=== PATIENT | male | born 1940 | race Caucasian/White ===

== ENCOUNTER 2018-11-10 14:46 | Inpatient (IN) | payer MEDICARE, OTHER ==
[~2018-11-10] VITALS: Ht 180.3 cm; Wt 53.5 kg
--- NOTE | ~2018-11-10 | MORECARE ---
CASE MANAGEMENT DISCHARGE SUMMARY PATIENT: BETSY BOYER UNIT: [id number] ADM DATE: 11/10/18 AGE: 78 : 42 SEX: M ROOM/BED: D.2229 AUTHOR: RUDI,DOC PHYSICIAN: REFERRING PHYSICIAN: VERA MEEKS MD DATE OF SERVICE: 11/17/18 Discharge Plan Patient Name: BETSY BOYER Facility: [facility]:[place] : 1940 Planned Disposition: Home with Home Health Anticipated Discharge Date: 11/16/18 Discharge Date: 11/15/2018 Expected LOS: 6 Initial Reviewer: [email or web address] Initial Review Date: 11/14/2018 Generated: 11/17/18 10:54 am Comments DCP- Discharge Planning Updated by [id number]: Ai West on 11/14/18 11:[address] Patient Name: BETSY BOYER Admission Status: Elective Accout number: [id number] Admission Date: 11-10-2018 : 1940 Admission Diagnosis:UNSP INTESTNL OBST, UNSP TO PARTIAL VERSUS COMPLETE Attending: VERA MEEKS Current LOS: 4 Anticipated DC Date: 11-16-2018 Planned Disposition: Home with Home Health Primary Insurance: UNINSURED DISCOUNT PLAN Discharge Planning Comments: CM met with patient and to discuss discharge planning. States he was independent with all ADL's and IADL's. prior to admission. He wears oxygen at 2L NC at . He gets his oxygen supplies from [facility]. He has his portable oxygen here to get home with. Discussed availability of rehab, SNF and home health. They would like Home health with [facility]. I called and spoke to An at [facility] and faxed clinical. I also faxed corrected insurance information and home address [address] in [place]. Home phone number is [phone]. An states they also received the referral from [facility]. CM will continue to follow and assist with discharge planning/needs. [employer] Project Manager: Ai West DCPIA - Discharge Planning Initial Assessment Updated by [email or web address]: Ai West on 11/14/18 12:28 pm * Is the patient Alert and Oriented? Yes * How many steps to enter\exit or inside your home? 4/0 * PCP Dr. Rashad Bobo in [place] * Pharmacy [facility] * Preadmission Environment Home with Family * ADLs Independent * Equipment Nebulizer Other Oxygen * Other Equipment Portable oxygen * List name and contact numbers for known caregivers / representatives who currently or will assist patient after discharge: Yamil sommer - [phone] * Verbal permission to speak to the caregivers and representatives has been obtained from the patient. Yes * Community resources currently utilized None * Please name any agencies selected above. DME - [facility] for oxygen * Additional services required to return to the preadmission environment? Yes * Can the patient safely return to the preadmission environment? Yes * Has this patient been hospitalized within the prior 30 days at any hospital? No Last DP export: 11/14/18 11:39 Patient Name: BETSY BOYER Page [id number] at 0954 All edits/amendments must be made on the electronic document DICTATION DATE: 11/17/18953 BUSINESS CONTINUITY SPECIALIST: CRISTINO 11/17/18953 RPT#: [id number] DC DATE:11/15/18 STATUS: DIS IN [facility] [address] [place] [address] END OF REPORT
--- NOTE | ~2018-11-10 | OP ---
PATIENT NAME: BETSY BOYER MEDICAL RECORD: [id number] :44 LOCATION:D.MS Garcia2229 ADMISSION DATE:11/10/18 SURGEON: LANCE MEEKS MD DATE OF OPERATION: 11/11/2018 PREOPERATIVE DIAGNOSES: 1. Small-bowel obstruction. 2. Right colon mass. 3. Coronary artery disease. 4. Chronic obstructive pulmonary disease. 5. History of prostate and bladder cancer. POSTOPERATIVE DIAGNOSES: 1. Small-bowel obstruction. 2. Right colon mass. 3. Coronary artery disease. 4. Chronic obstructive pulmonary disease. 5. History of prostate and bladder cancer. PROCEDURE: Hand-assisted laparoscopic right hemicolectomy. SURGEON: Lance Meeks MD REPORT OF PROCEDURE: The patient's abdomen was prepped and draped in sterile fashion. A skin incision was made around the patient's umbilicus and electrocautery was used to dissect through the subcutaneous tissues and fascia until we entered the abdominal cavity. Once inside, we could see dilated small bowel consistent with a known diagnosis of small-bowel obstruction. The Gelport was inserted with a 5-mm trocar within it. We insufflated the abdomen and under direct visualization, a 5-mm trocar was placed in the epigastrium and another was placed in the right subcostal region. As we penetrated the abdominal cavity, I could feel in the right lower quadrant that there was a mass present that was causing the obstruction. This mass appeared to be right at the ileocecal valve. The white line of Toldt to the right colon was taken down and we mobilized the right colon medially. We continued this dissection around the hepatic flexure and went medially to about the middle to the proximal third of the transverse colon. Once we had this colon completely mobilized, then I inspected the remainder of the abdominal cavity, I felt around on the liver and there were no distinct masses or lesions that were felt. The abdominal wall was clear of any carcinomatosis. The remaining bowel and omentum appeared to be normal with no signs of any other masses or lesions. There was dilatation to the small bowel throughout I felt on the stomach and the NG tube was in good position. At this point, the right colon with the mass was eviscerated through the wound protector. We transected the small bowel at approximately 6 cm proximal to the ileocecal valve using a 75 blue load DONOVAN stapler. The proximal transverse colon was transected with a 75 blue load DONOVAN stapler and the mesentery was taken down with sequential clamp and tie techniques with 3-0 silks. The bowel was sent off for permanent specimen. The 2 ends of the bowel were placed together and a gsvz-ys-ooje anastomosis was performed with a 75 blue load DONOVAN stapler. The enterotomy were closed off with a 30 blue load TA stapler and then I oversewed all the staple lines using Lemberted 3-0 silks. This was then placed back into the abdominal cavity. The omentum was then laid over top of the anastomosis. We irrigated out the abdomen thoroughly with normal saline and assured there was no sign of any active bleeding. At this point, the ports and insufflation were removed. The midline fascia was closed with running #1 OPERATIVE REPORT [id number] BETSY BOYER PDS times 2. The subcutaneous tissues were irrigated out and then the skin incisions were all closed with charan. COMPLICATIONS: None. CONDITION: Stable. ANESTHESIA: General endotracheal. BLOOD LOSS: Minimal. TRANSINT:[id number] Voice Confirmation ID: [id number] DOCUMENT ID: [id number] LANCE MEEKS MD CC: [id number] DICTATION DATE: 11/11/182229 REFRIGERATOR ROOM CLERK: 11/12/18 0152 ADM IN [facility] [address] [id number]
--- NOTE | ~2018-11-10 | MORECARE ---
CASE MANAGEMENT DISCHARGE SUMMARY PATIENT: BETSY BOYER UNIT: [id number] ADM DATE: 11/10/18 AGE: 78 : 42 SEX: M ROOM/BED: D.2229 AUTHOR: RUDI,DOC PHYSICIAN: REFERRING PHYSICIAN: VERA MEEKS MD DATE OF SERVICE: 11/14/18 Discharge Plan Patient Name: BETSY BOYER Facility: [facility]:[place] : 1940 Planned Disposition: Home with Home Health Anticipated Discharge Date: 11/16/18 Discharge Date: Expected LOS: 6 Initial Reviewer: [email or web address] Initial Review Date: 11/14/2018 Generated: 11/14/18 1:39 pm Comments DCP- Discharge Planning Updated by [email or web address]: Ai West on 11/14/18 11:[address] Patient Name: BETSY BOYER Admission Status: Elective Accout number: [id number] Admission Date: 11-10-2018 : 1940 Admission Diagnosis:UNSP INTESTNL OBST, UNSP TO PARTIAL VERSUS COMPLETE Attending: VERA MEEKS Current LOS: 4 Anticipated DC Date: 11-16-2018 Planned Disposition: Home with Home Health Primary Insurance: UNINSURED DISCOUNT PLAN Discharge Planning Comments: CM met with patient and to discuss discharge planning. States he was independent with all ADL's and IADL's. prior to admission. He wears oxygen at 2L [place] at . He gets his oxygen supplies from [facility]. He has his portable oxygen here to get home with. Discussed availability of rehab, SNF and home health. They would like Home health with [facility]. I called and spoke to An at [facility] and faxed clinical. I also faxed corrected insurance information and [address] address [address] [place]. Home phone number is [phone]. An states they also received the referral from [facility]. CM will continue to follow and assist with discharge planning/needs. [employer]ade Cloth Sewer: Ai West DCPIA - Discharge Planning Initial Assessment Updated by [email or web address]: Ai West on 11/14/18 12:28 pm * Is the patient Alert and Oriented? Yes * How many steps to enter\exit or inside your home? 4/0 * PCP Dr. Rashad Bobo in [place] * Pharmacy [place] * Preadmission Environment Home with Family * ADLs Independent * Equipment Nebulizer Other Oxygen * Other Equipment Portable oxygen * List name and contact numbers for known caregivers / representatives who currently or will assist patient after discharge: Yamil sommer - [phone] * Verbal permission to speak to the caregivers and representatives has been obtained from the patient. Yes * Community resources currently utilized None * Please name any agencies selected above. DME - [facility] for oxygen * Additional services required to return to the preadmission environment? Yes * Can the patient safely return to the preadmission environment? Yes * Has this patient been hospitalized within the prior 30 days at any hospital? No Last DP export: 11/14/18 11:30 Patient Name: BETSY BOYER Page [id number] at 1239 All edits/amendments must be made on the electronic document DICTATION DATE: 11/14/188 HEATING AND COOLING SYSTEMS ENGINEER: CRISTINO 11/14/18 1238 RPT#: [id number] DC DATE: STATUS: ADM IN [facility] [address] [place] [address] END OF REPORT
--- NOTE | ~2018-11-10 | MORECARE ---
CASE MANAGEMENT DISCHARGE SUMMARY PATIENT: BETSY BOYER UNIT: [id number] ADM DATE: 11/10/18 AGE: 78 : 42 SEX: M ROOM/BED: D.2229 AUTHOR: ADELIA GRIJALVA PHYSICIAN: REFERRING PHYSICIAN: VERA MEEKS MD DATE OF SERVICE: 11/14/18 Discharge Plan Patient Name: BETSY BOYER [facility] [facility] 1940 Planned Disposition: Home with Home Health Anticipated Discharge Date: 11/16/18 Discharge Date: Expected LOS: 6 Initial Reviewer: [email or web address] Initial Review Date: 11/14/2018 Generated: 11/14/18 1:30 pm DCPIA - Discharge Planning Initial Assessment Updated by [email or web address]: Ai West on 11/14/18 12:28 pm * Is the patient Alert and Oriented? Yes * How many steps to enter\exit or inside your home? 4/0 * PCP Dr. Rashad Bobo in [place] * Pharmacy [place] * Preadmission Environment Home with Family * ADLs Independent * Equipment Nebulizer Other Oxygen * Other Equipment Portable oxygen * List name and contact numbers for known caregivers / representatives who currently or will assist patient after discharge: Yamil sommer - [phone] * Verbal permission to speak to the caregivers and representatives has been obtained from the patient. Yes * Community resources currently utilized None * Please name any agencies selected above. DME - [facility] for oxygen * Additional services required to return to the preadmission environment? Yes * Can the patient safely return to the preadmission environment? Yes * Has this patient been hospitalized within the prior 30 days at any hospital? No External Providers External Provider: [facility] Next Contact Date: Service Request Date: Service Type: Resolution: Reviewer: Comments: Patient Name: BETSY BOYER Page 01961 at 1230 All edits/amendments must be made on the electronic document DICTATION DATE: 11/14/18 1230 REHAB THERAPY MANAGER: CRISTINO 11/14/18 1230 RPT#: [id number] DC DATE: STATUS: ADM IN [facility] [address] [id number] END OF REPORT
[2018-11-10 18:56] LABS: BASOPHILS 0.1 % (0-2); EOSINOPHILS 0.1 % (0-7); HEMATOCRIT 31.7 % (42.0-54.0); HEMOGLOBIN 9.6 g/dL (13.5-17.5); IMMATURE GRANULOCYTES 0.3 % (0-5); LYMPHOCYTES 9.7 % (15-50); MCH 20.6 pg (26.0-34.0); MCHC 30.3 g/dL (31.0-37.0); MCV 67.9 fL (80.0-100.0); MEAN PLATELET VOLUME 9.2 fL (7.4-10.4); MONOCYTES 10.7 % (2-11); NEUTROPHILS 79.1 % (40-80); PLATELET COUNT 238 10x3/uL (130-400); RBC 4.67 10x6/uL (4.20-6.10); RDW 17.7 % (11.5-14.5); WBC 13.2 10x3/uL (4.8-10.8)
[2018-11-10 19:08] LABS: CALC OSMOLALITY 285 mosm/kg (275-300); CALCIUM 7.6 mg/dL (8.5-10.1); CARBON DIOXIDE 25.9 mmol/L (21.0-32.0); CHLORIDE - SERUM 105 mmol/L (98-107); CREATININE - SERUM 0.8 mg/dL (0.6-1.3); GLUCOSE 123 mg/dL (74-106); SODIUM 142 mmol/L (136-145); UREA NITROGEN 17 mg/dL (7-18); eGFR NON AFRICAN AMERICAN > 90 mL/min (90-120)
[2018-11-10 20:00] VITALS: BP 130/76
[2018-11-11] VITALS (10 sets, daily range): BP systolic 120–144; BP diastolic 54–76; Ht 180.3 cm; Wt 53.5 kg
[2018-11-11] MEDS ORDERED: POTASSIUM CHLORIDE E PO (07:38)
[2018-11-11] MEDS ORDERED: LANOXIN125 MCG PO (07:39)
[2018-11-11] MEDS ORDERED: COREG 3.1253.125 MG PO (07:40)
[2018-11-11] MEDS ORDERED: ZOCOR40 MG PO (07:41)
[2018-11-11] MEDS ORDERED: FUROSEMIDE40 MG PO (07:41)
[2018-11-12] VITALS (12 sets, daily range): BP systolic 103–117; BP diastolic 47–61
[2018-11-12 06:14] LABS: BASOPHILS 0.1 % (0-2); EOSINOPHILS 0 % (0-7); HEMATOCRIT 30.4 % (42.0-54.0); IMMATURE GRANULOCYTES 0.3 % (0-5); LYMPHOCYTES 7.6 % (15-50); MCH 20.7 pg (26.0-34.0); MCHC 29.6 g/dL (31.0-37.0); MEAN PLATELET VOLUME 10.1 fL (7.4-10.4); MONOCYTES 10.2 % (2-11); NEUTROPHILS 81.8 % (40-80); PLATELET COUNT 218 10x3/uL (130-400); RBC 4.35 10x6/uL (4.20-6.10)
[2018-11-12 06:20] LABS: MCV 69.9 fL (80.0-100.0); WBC 7.8 10x3/uL (4.8-10.8)
[2018-11-12 06:40] LABS: CALC OSMOLALITY 289 mosm/kg (275-300); CALCIUM 7.5 mg/dL (8.5-10.1); CARBON DIOXIDE 25.6 mmol/L (21.0-32.0); CHLORIDE - SERUM 111 mmol/L (98-107); CREATININE - SERUM 0.8 mg/dL (0.6-1.3); GLUCOSE 83 mg/dL (74-106); POTASSIUM - SERUM 3.9 mmol/L (3.5-5.1); SODIUM 145 mmol/L (136-145); UREA NITROGEN 17 mg/dL (7-18); eGFR NON AFRICAN AMERICAN > 90 mL/min (90-120)
[2018-11-13 01:23] VITALS: BP 119/56
[2018-11-13 05:14] VITALS: BP 132/55
[2018-11-13 07:45] LABS: BASOPHILS 0 % (0-2); EOSINOPHILS 0 % (0-7); HEMATOCRIT 28.3 % (42.0-54.0); HEMOGLOBIN 8.5 g/dL (13.5-17.5); IMMATURE GRANULOCYTES 0.3 % (0-5); LYMPHOCYTES 9.1 % (15-50); MCH 20.6 pg (26.0-34.0); MCV 68.7 fL (80.0-100.0); MONOCYTES 4.5 % (2-11); NEUTROPHILS 86.1 % (40-80); PLATELET COUNT 226 10x3/uL (130-400); RBC 4.12 10x6/uL (4.20-6.10); RDW 18.3 % (11.5-14.5)
[2018-11-13 07:46] LABS: WBC 13.2 10x3/uL (4.8-10.8)
[2018-11-13 08:04] LABS: CALC OSMOLALITY 296 mosm/kg (275-300); CALCIUM 7.5 mg/dL (8.5-10.1); CARBON DIOXIDE 24.6 mmol/L (21.0-32.0); CHLORIDE - SERUM 114 mmol/L (98-107); CREATININE - SERUM 0.6 mg/dL (0.6-1.3); GLUCOSE 82 mg/dL (74-106); SODIUM 149 mmol/L (136-145); UREA NITROGEN 17 mg/dL (7-18); eGFR NON AFRICAN AMERICAN > 90 mL/min (90-120)
[2018-11-13 08:05] LABS: POTASSIUM - SERUM 3.3 mmol/L (3.5-5.1)
[2018-11-13 09:04] VITALS: BP 122/36
[2018-11-13 12:30] VITALS: BP 112/44
[2018-11-13 17:15] VITALS: BP 108/80
[2018-11-13 21:14] VITALS: BP 118/57
[2018-11-14] VITALS (7 sets, daily range): BP systolic 128–148; BP diastolic 52–86
[2018-11-14 04:58] LABS: BASOPHILS 0 % (0-2); EOSINOPHILS 0.1 % (0-7); HEMATOCRIT 27.5 % (42.0-54.0); HEMOGLOBIN 8.1 g/dL (13.5-17.5); IMMATURE GRANULOCYTES 0.6 % (0-5); LYMPHOCYTES 7.2 % (15-50); MCH 20.2 pg (26.0-34.0); MCHC 29.5 g/dL (31.0-37.0); MCV 68.6 fL (80.0-100.0); MEAN PLATELET VOLUME 10.1 fL (7.4-10.4); MONOCYTES 5.2 % (2-11); NEUTROPHILS 86.9 % (40-80); PLATELET COUNT 215 10x3/uL (130-400); RBC 4.01 10x6/uL (4.20-6.10); WBC 14.5 10x3/uL (4.8-10.8)
[2018-11-14 05:17] LABS: CALCIUM 7.2 mg/dL (8.5-10.1); CARBON DIOXIDE 22.7 mmol/L (21.0-32.0); CHLORIDE - SERUM 113 mmol/L (98-107); CREATININE - SERUM 0.6 mg/dL (0.6-1.3); SODIUM 148 mmol/L (136-145); eGFR NON AFRICAN AMERICAN > 90 mL/min (90-120)
[2018-11-14 05:28] LABS: CALC OSMOLALITY 291 mosm/kg (275-300); GLUCOSE 63 mg/dL (74-106); POTASSIUM - SERUM 2.7 mmol/L (3.5-5.1); UREA NITROGEN 12 mg/dL (7-18)
[2018-11-15] VITALS: BP 127/74
[2018-11-15 04:00] VITALS: BP 130/64
[2018-11-15 05:40] LABS: BASOPHILS 0.1 % (0-2); EOSINOPHILS 0.2 % (0-7); IMMATURE GRANULOCYTES 0.7 % (0-5); LYMPHOCYTES 11.1 % (15-50); MCH 22.9 pg (26.0-34.0); MCHC 32.3 g/dL (31.0-37.0); MEAN PLATELET VOLUME 10.2 fL (7.4-10.4); MONOCYTES 5.9 % (2-11); PLATELET COUNT 197 10x3/uL (130-400); RDW 20.5 % (11.5-14.5)
[2018-11-15 05:46] LABS: HEMATOCRIT 34.1 % (42.0-54.0)
[2018-11-15 06:07] LABS: CALCIUM 7.3 mg/dL (8.5-10.1); CARBON DIOXIDE 26.5 mmol/L (21.0-32.0); CHLORIDE - SERUM 109 mmol/L (98-107); CREATININE - SERUM 0.5 mg/dL (0.6-1.3); GLUCOSE 93 mg/dL (74-106); SODIUM 146 mmol/L (136-145); eGFR NON AFRICAN AMERICAN > 90 mL/min (90-120)
[2018-11-15 06:21] LABS: CALC OSMOLALITY 287 mosm/kg (275-300); UREA NITROGEN 5 mg/dL (7-18)
[2018-11-15 06:22] LABS: POTASSIUM - SERUM 2.9 mmol/L (3.5-5.1)
[2018-11-15 09:34] VITALS: BP 128/87
[2018-11-15 12:45] VITALS: BP 130/75
[2018-11-15 16:52] VITALS: BP 150/45
== END 2018-11-15 18:14 | disposition home health service (06) | DRG 330 ==
LOC: D.MS 14:46
PROVIDERS: Surgery
PROC: 0DTF0ZZ Resection of Right Large Intestine, Open Approach (ICD-10-PCS; principal; 2018-11-10)
DX: D37.4 Neoplasm of uncertain behavior of colon (principal); K56.609 Unspecified intestinal obstruction, unspecified as to partial versus complete obstruction; I25.10 Atherosclerotic heart disease of native coronary artery without angina pectoris; J44.9 Chronic obstructive pulmonary disease, unspecified; E87.6 Hypokalemia

== ENCOUNTER → 2019-03-13 12:53 | Outpatient (CLI) | payer MEDICARE, OTHER ==
[2018-11-11 13:19] VITALS: BMI 16.4
[~2019-03-13 12:53] MED LIST: COREG 3.1253.125 MG PO; FUROSEMIDE40 MG PO; LANOXIN125 MCG PO; POTASSIUM CHLORIDE E PO; ZOCOR40 MG PO
[2019-03-13 15:25] LABS: BASOPHILS 0.3 % (0-2); EOSINOPHILS 0.3 % (0-7); HEMATOCRIT 38.5 % (42.0-54.0); HEMOGLOBIN 12.3 g/dL (13.5-17.5); IMMATURE GRANULOCYTES 0.1 % (0-5); LYMPHOCYTES 21.5 % (15-50); MCH 25.3 pg (26.0-34.0); MCHC 31.9 g/dL (31.0-37.0); MCV 79.2 fL (80.0-100.0); MEAN PLATELET VOLUME 10.6 fL (7.4-10.4); MONOCYTES 7.2 % (2-11); NEUTROPHILS 70.6 % (40-80); PLATELET COUNT 322 10x3/uL (130-400); RBC 4.86 10x6/uL (4.20-6.10); RDW 15.9 % (11.5-14.5); WBC 10.5 10x3/uL (4.8-10.8)
[2019-03-13 15:47] LABS: ALBUMIN 3.2 g/dL (3.4-5.0); BILIRUBIN - DIRECT 0.1 mg/dL (0.00-0.30); BILIRUBIN - INDIRECT 0.33 mg/dL (0.00-1.00); BILIRUBIN - TOTAL 0.43 mg/dL (0.2-1.3); PROTEIN - SERUM 7.7 g/dL (6.4-8.2)
== END | disposition home or self-care (01) ==
LOC: D.LABREF 12:53
PROVIDERS: ATTEND Surgery
DX: C18.9 Malignant neoplasm of colon, unspecified (principal)